=== PATIENT | female | born 1995 | race Caucasian/White ===

== ENCOUNTER 2016-11-17 11:05 | Inpatient (IN) | payer OTHER, BC ==
[2016-11-17] MEDS ORDERED: Misoprostol 25 MCG (1/4 of 100 MCG) Tab ONE (12:19)
[2016-11-17] MEDS ORDERED: Acetaminophen 325 MG Tab PO PRN (12:26)
[2016-11-17] MEDS ORDERED: Sodium Chloride 0.9% 10 ML Syringe FLUSH PRN (12:26)
[2016-11-17] MEDS ORDERED: Nalbuphine 20 MG/1 ML Amp IVPUSH PRN (12:26)
[2016-11-17] MEDS ORDERED: Ondansetron 4 MG/2 ML SDV IVPUSH PRN (12:26)
--- NOTE | 2016-11-17 12:26 | PCM.LDHP ---
L&D History of Present Illness - General Date of Service: 11/17/16 Admit Problem/Dx: Admission Diagnosis/Problem Admission Diagnosis/Problem Source of Information: Patient History Limitations: Reports: No Limitations - History of Present Illness Introduction:: Patient is a 21-year-old at 39-1/7 weeks gestation who presents to labor and delivery today for serial blood pressures and laboratory evaluation. Seen in clinic earlier today and noted to have 2 mild range blood pressures. Has overall been feeling well. Only intermittent headache since last seen. No visual changes or right upper quadrant pain. Baby is moving well. No significant signs of labor. up to this point is otherwise been uncomplicated. - Related Data Allergies/Adverse Reactions: Allergies Allergy/AdvReac Type Severity Reaction Status Date / Time No Known Allergies Allergy Verified 11/17/16 12:13 Home Medications: Home Meds PNV95/Ferrous Fumarate/FA [ Tablet] 1 each PO DAILY 11/17/16 [History] Past Medical History - Past Health History Medical/Surgical History: Denies Medical/Surgical History [employer] History: Reports: : 1 Para: 0 LMP (Approximate): Social & Family History - Tobacco Use Smoking Status *Q: Never Smoker - Alcohol Use Alcohol Use History: No - Recreational Drug Use Recreational Drug Use: No H&P Review of Systems - Review of Systems: Review Of Systems: See Below General: Reports: No Symptoms Pulmonary: Reports: No Symptoms Cardiovascular: Reports: No Symptoms Gastrointestinal: Reports: No Symptoms Genitourinary: Reports: No Symptoms Musculoskeletal: Reports: No Symptoms L&D Exam - Exam Exam: See Below - Vital Signs Weight: 102.965 kg - OB Specific Contraction Intensity: Irritability Movement: Active Heart Tones: Present Heart Tones per Min: 145 Heart Rate (FHR) Variability: Moderate (6-25 bmp) Presentation: Vertex - Mcclure Score Mcclure Score Cervix Position: Midposition Mcclure Score Consistency: Medium Mcclure Score Effacement: 31-50% Mcclure Score Dilation: 1-2 cm Mcclure Score 's Station: -3 Mcclure Score Total: 4 - Exam General: Alert, Oriented, Cooperative Lungs: Clear to Auscultation, Normal Respiratory Effort Cardiovascular: Regular Rate, Regular Rhythm Abdomen: Soft Genitourinary: Normal external exam Extremities: Normal Inspection Skin: Warm, Dry, Intact - Patient Data Lab Results Last 24 hrs: Laboratory Results - last 24 hr 11/17/16 Range/Units 11:45 WBC 11.00 H (3.98-10.04) K/mm3 RBC 4.40 (3.98-5.22) M/mm3 Hgb 12.9 (11.2-15.7) gm/L Hct 37.5 (34.1-44.9) % MCV 85.2 (79.4-94.8) fl MCH 29.3 (25.6-32.2) pg MCHC 34.4 (32.2-35.5) g/dl RDW Std Deviation 40.8 (36.4-46.3) fL Plt Count 155 L (182-369) K/mm3 MPV 10.0 (9.4-12.3) fl Result Diagrams: 11/17/16 11:45 - Problem List (1) 39 weeks gestation of SNOMED Code(s): 42215411 ICD Code: Z3A.39 - 39 WEEKS GESTATION OF Status: Acute Current Visit: Yes (2) Gestational hypertension SNOMED Code(s): 52616866 ICD Code: O13.9 - GESTATIONAL HTN W/O SIGNIFICANT PROTEINURIA, UNSP TRIMESTER Status: Acute Current Visit: Yes Qualifiers: Trimester: third trimester Qualified Code(s): O13.3 - Gestational [ -induced] hypertension without significant proteinuria, third trimester Problem List Initiated/Reviewed/Updated: Yes Orders Last 24hrs: Active Orders 24 hr Category Date Time Status ALANINE AMINOTRANSFERASE,ALT [CHEM] Routine Lab 11/17/16 11:45 Received ASPARTATE AMNIOTRANSFERASE,AST [CHEM] Routine Lab 11/17/16 11:45 Received UA W/O MICROSCOPIC [URIN] Routine Lab 11/17/16 11:27 Uncollected Assessment/Plan Comment:: 21-year-old at 39 and 1/7 weeks who presented to labor and delivery today for serial blood pressures and labs. These have shown consistent mild elevation in blood pressures. Laboratory testing normal. We'll plan to keep patient for induction for gestational hypertension. We will start induction process with Cytotec for cervical ripening. Will move on to Colón bulb placement and Pitocin when able. CBC and type and screen to be drawn. GBS negative, no need for antibiotics. Pain management per patient preference. Anticipate .
[2016-11-17] MEDS ORDERED: Oxytocin/Lactated Ringers 10 UNIT/1,000 ML BAG IV SCH ×2 (12:30→21:30)
[2016-11-17] MEDS: Misoprostol 25 MCG (1/4 of 100 MCG) Tab VAG PRN ×3 (12:42→20:59)
--- NOTE | 2016-11-17 16:41 | PCM.PREANE ---
Preanesthetic Assessment - Procedure Proposed Procedure: Labor Epidural - Anesthesia/Transfusion/Family Hx Anesthesia History: No Prior Anesthesia Family History of Anesthesia Reaction: No Transfusion History: No Prior Transfusion(s) - Review of Systems General: No Symptoms Pulmonary: No Symptoms Cardiovascular: Other (gestational hypertension ) Gastrointestinal: Other (GERD) Neurological: No Symptoms Other: Reports: None - Physical Assessment NPO Status Date: 11/17/16 NPO Status Time: 02:30 O2 Sat by Pulse Oximetry: 97 Respiratory Rate: 18 Vital Signs: Last Vital Signs Temp 36.9 C 11/17/16 12:26 Pulse 102 H 11/17/16 12:26 Resp 18 11/17/16 12:26 BP 143/100 H 11/17/16 12:26 Pulse Ox 97 11/17/16 12:26 Height: 1.7 m Weight: 102.965 kg ASA Class: 2 Mental Status: Alert & Oriented x3 Airway Class: Mallampati = 2 Dentition: Reports: Normal Dentition Thyro-Mental Finger Breadths: 3 Mouth Opening Finger Breadths: 3 ROM/Head Extension: Full Lungs: Clear to auscultation, Normal respiratory effort Cardiovascular: Regular Rate, Regular Rhythm - Lab Values: Laboratory Last Values WBC 11.00 K/mm3 (3.98-10.04) H 11/17/16 11:45 RBC 4.40 M/mm3 (3.98-5.22) 11/17/16 11:45 Hgb 12.9 gm/L (11.2-15.7) 11/17/16 11:45 Hct 37.5 % (34.1-44.9) 11/17/16 11:45 MCV 85.2 fl (79.4-94.8) 11/17/16 11:45 MCH 29.3 pg (25.6-32.2) 11/17/16 11:45 MCHC 34.4 g/dl (32.2-35.5) 11/17/16 11:45 RDW Std Deviation 40.8 fL (36.4-46.3) 11/17/16 11:45 Plt Count 155 K/mm3 (182-369) L 11/17/16 11:45 MPV 10.0 fl (9.4-12.3) 11/17/16 11:45 AST 13 U/L (15-37) L 11/17/16 11:45 ALT 16 U/L (14-59) 11/17/16 11:45 Urine Color Light yellow (Yellow) 11/17/16 12:20 Urine Appearance Clear (Clear) 11/17/16 12:20 Urine pH 7.0 (5.0-8.0) 11/17/16 12:20 Ur Specific [place] 1.015 (1.005-1.030) 11/17/16 12:20 Urine Protein Negative (Negative) 11/17/16 12:20 Urine Glucose (UA) Negative (Negative) 11/17/16 12:20 Urine Ketones Negative (Negative) 11/17/16 12:20 Urine Occult Blood Trace-lysed (Negative) H 11/17/16 12:20 Urine Nitrite Negative (Negative) 11/17/16 12:20 Urine Bilirubin Negative (Negative) 11/17/16 12:20 Urine Urobilinogen 0.2 (0.2-1.0) 11/17/16 12:20 Ur Leukocyte Esterase Negative (Negative) 11/17/16 12:20 - Allergies Allergies/Adverse Reactions: Allergies Allergy/AdvReac Type Severity Reaction Status Date / Time No Known Allergies Allergy Verified 11/17/16 12:13 - Blood Blood Available: No Product(s) Available: None - Anesthesia Plan Pre-Op Medication Ordered: None - Acknowledgements Anesthesia Type Planned: Epidural Pt an Appropriate Candidate for the Planned Anesthesia: Yes Alternatives and Risks of Anesthesia Discussed w Pt/Guardian: Yes Pt/Guardian Understands and Agrees with Anesthesia Plan: Yes PreAnesthesia Questionnaire Gastrointestinal History: Reports: Other (See Below) Other Gastrointestinal History: Heartburn with [employer] HELPER History: Reports: - Past Surgical History GI Surgical History: Reports: None - SUBSTANCE USE Smoking Status *Q: Never Smoker Second Hand Smoke Exposure: No Recreational Drug Use History: No - HOME MEDS Home Medications: Home Meds PNV95/Ferrous Fumarate/FA [ Tablet] 1 each PO DAILY 11/17/16 [History] - CURRENT (IN HOUSE) MEDS Current Meds: Current Medications Acetaminophen (Tylenol) 650 mg PO Q4H PRN PRN Reason: Pain (Mild 1-3) and fever Oxytocin/Lactated Ringer's (Pitocin In Lr 10 Units/1,000 Ml) 10 unit in 1,000 mls @ 500 mls/hr IV TITRATE KARMA PRN Reason: Protocol Misoprostol (Cytotec) 25 mcg VAG Q4H PRN PRN Reason: cervical ripening Stop: 11/17/16 20:27 Last Admin: 11/17/16 12:42 Dose: 25 mcg Nalbuphine HCl (Nubain) 10 mg IVPUSH Q2H PRN PRN Reason: Pain (moderate 4-6) Ondansetron HCl (Zofran) 4 mg IVPUSH Q4H PRN PRN Reason: Nausea/Vomiting Sodium Chloride (Saline Flush) 10 ml FLUSH ASDIRECTED PRN PRN Reason: Keep Vein Open Discontinued Medications Misoprostol (Cytotec) Confirm Administered Dose 25 mcg .ROUTE .STK-MED ONE Stop: 11/17/16 12:20 Last Admin: 11/17/16 12:41 Dose: Not Given
--- NOTE | 2016-11-17 20:10 | PCM.PNLD ---
Labor Progress Note - VS & Meds Vital Signs: Last Vital Signs Temp 36.9 C 11/17/16 12:26 Pulse 102 H 11/17/16 12:26 Resp 18 11/17/16 16:41 BP 143/100 H 11/17/16 12:26 Pulse Ox 97 11/17/16 16:41 Active Medications: Current Medications Acetaminophen (Tylenol) 650 mg PO Q4H PRN PRN Reason: Pain (Mild 1-3) and fever Oxytocin/Lactated Ringer's (Pitocin In Lr 10 Units/1,000 Ml) 10 unit in 1,000 mls @ 500 mls/hr IV TITRATE KARMA PRN Reason: Protocol Misoprostol (Cytotec) 25 mcg VAG Q4H PRN PRN Reason: cervical ripening Stop: 11/17/16 20:27 Last Admin: 11/17/16 16:53 Dose: 25 mcg Nalbuphine HCl (Nubain) 10 mg IVPUSH Q2H PRN PRN Reason: Pain (moderate 4-6) Ondansetron HCl (Zofran) 4 mg IVPUSH Q4H PRN PRN Reason: Nausea/Vomiting Sodium Chloride (Saline Flush) 10 ml FLUSH ASDIRECTED PRN PRN Reason: Keep Vein Open Discontinued Medications Misoprostol (Cytotec) Confirm Administered Dose 25 mcg .ROUTE .STK-MED ONE Stop: 11/17/16 12:20 Last Admin: 11/17/16 12:41 Dose: Not Given - Uterine Contractions Uterine Monitoring Mode: External [place] Contraction Intensity: Mild to Moderate - Monitoring Monitor Mode: External Ultrasound Heart Rate (FHR) Baseline: 145 Heart Rate (FHR) Variability: Moderate (6-25 bmp) Accelerations: Present, 15x15 Decelerations: None Strip Review: Category I - Vaginal Exam Dilation (cm): 1-2 Effacement (Percent): 50 Station: -3 Cervical Position: Posterior - Labor Progress (Free Text) Labor Progress: Patient doing well. Second cytotec dose placed by nursing staff. Continue present management.
--- NOTE | 2016-11-17 21:14 | PCM.PNLD ---
Labor Progress Note - VS & Meds Vital Signs: Last Vital Signs Temp 36.9 C 11/17/16 12:26 Pulse 102 H 11/17/16 12:26 Resp 18 11/17/16 16:41 BP 143/100 H 11/17/16 12:26 Pulse Ox 97 11/17/16 16:41 Active Medications: Current Medications Acetaminophen (Tylenol) 650 mg PO Q4H PRN PRN Reason: Pain (Mild 1-3) and fever Oxytocin/Lactated Ringer's (Pitocin In Lr 10 Units/1,000 Ml) 10 unit in 1,000 mls @ 500 mls/hr IV TITRATE KARMA PRN Reason: Protocol Nalbuphine HCl (Nubain) 10 mg IVPUSH Q2H PRN PRN Reason: Pain (moderate 4-6) Ondansetron HCl (Zofran) 4 mg IVPUSH Q4H PRN PRN Reason: Nausea/Vomiting Sodium Chloride (Saline Flush) 10 ml FLUSH ASDIRECTED PRN PRN Reason: Keep Vein Open Discontinued Medications Misoprostol (Cytotec) Confirm Administered Dose 25 mcg .ROUTE .STK-MED ONE Stop: 11/17/16 12:20 Last Admin: 11/17/16 12:41 Dose: Not Given Misoprostol (Cytotec) 25 mcg VAG Q4H PRN PRN Reason: cervical ripening Stop: 11/17/16 20:27 Last Admin: 11/17/16 20:59 Dose: 25 mcg - Uterine Contractions Uterine Monitoring Mode: External [place] Contraction Intensity: Mild to Moderate - Monitoring Monitor Mode: External Ultrasound Heart Rate (FHR) Baseline: 145 Heart Rate (FHR) Variability: Moderate (6-25 bmp) Accelerations: Present, 15x15 Decelerations: None Strip Review: Category I - Vaginal Exam Dilation (cm): 2 Effacement (Percent): 75 Station: -2 Cervical Position: Posterior - Labor Progress (Free Text) Labor Progress: Doing well. 3rd Cytotec placed along with perry bulb. 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
[2016-11-17] MEDS ORDERED: Zolpidem 5 MG Tab PO PRN (21:28)
[2016-11-18] MEDS: Lactated Ringers 1,000 ML IV SCH ×2 (04:40→09:56)
--- NOTE | 2016-11-18 07:33 | PCM.PNLD ---
Labor Progress Note - VS & Meds Vital Signs: Last Vital Signs Temp 36.9 C 11/17/16 12:26 Pulse 102 H 11/17/16 12:26 Resp 18 11/17/16 16:41 BP 143/100 H 11/17/16 12:26 Pulse Ox 97 11/17/16 16:41 Active Medications: Current Medications Acetaminophen (Tylenol) 650 mg PO Q4H PRN PRN Reason: Pain (Mild 1-3) and fever Oxytocin/Lactated Ringer's (Pitocin In Lr 10 Units/1,000 Ml) 10 unit in 1,000 mls @ 500 mls/hr IV TITRATE KARMA PRN Reason: Protocol Oxytocin/Lactated Ringer's (Pitocin In Lr 10 Units/1,000 Ml) 10 unit in 1,000 mls @ 12 mls/hr IV TITRATE KARMA; 2 MUNITS/MIN PRN Reason: Protocol Last Titration: 11/18/16 06:35 Dose: 7 munits/min, 42 mls/hr Lactated Ringer's (Ringers, Lactated) 1,000 mls @ 125 mls/hr IV ASDIRECTED KARMA Last Admin: 11/18/16 04:40 Dose: 125 mls/hr Nalbuphine HCl (Nubain) 10 mg IVPUSH Q2H PRN PRN Reason: Pain (moderate 4-6) Ondansetron HCl (Zofran) 4 mg IVPUSH Q4H PRN PRN Reason: Nausea/Vomiting Sodium Chloride (Saline Flush) 10 ml FLUSH ASDIRECTED PRN PRN Reason: Keep Vein Open Zolpidem Tartrate (Ambien) 5 mg PO BEDTIME PRN PRN Reason: Sleep Last Admin: 11/17/16 21:36 Dose: 5 mg Discontinued Medications Misoprostol (Cytotec) Confirm Administered Dose 25 mcg .ROUTE .STK-MED ONE Stop: 11/17/16 12:20 Last Admin: 11/17/16 12:41 Dose: Not Given Misoprostol (Cytotec) 25 mcg VAG Q4H PRN PRN Reason: cervical ripening Stop: 11/17/16 20:27 Last Admin: 11/17/16 20:59 Dose: 25 mcg - Uterine Contractions Uterine Monitoring Mode: External [place] Contraction Intensity: Mild to Moderate - Monitoring Monitor Mode: External Ultrasound Heart Rate (FHR) Baseline: 145 Heart Rate (FHR) Variability: Moderate (6-25 bmp) Accelerations: Present, 15x15 Decelerations: None Strip Review: Category I - Vaginal Exam Dilation (cm): 3-4 Effacement (Percent): 75 Station: -2 Cervical Position: Midposition - Labor Progress (Free Text) Labor Progress: Doing well. Colón bulb came out around midnight last night. Pitocin started around 5 am. Currently at 7. AROM performed with release of clear fluid. BP' s remain normal to mild range
[2016-11-18] MEDS ORDERED: fentaNYL 100 MCG/2 ML SDV ONE (08:51)
[2016-11-18] MEDS ORDERED: diphenhydrAMINE 50 MG/ML SDV IVPUSH PRN ×2 (09:02→11:39)
[2016-11-18] MEDS ORDERED: fentaNYL 100 MCG/2 ML SDV EPIDUR PRN (09:02)
[2016-11-18] MEDS ORDERED: ePHEDrine 50 MG/ML SDV IVPUSH PRN ×2 (09:02→11:39)
[2016-11-18] MEDS ORDERED: Bupivacaine/fentaNYL/NS 100 ML Bag EPIDUR SCH (09:15)
[2016-11-18] MEDS ORDERED: ceFAZolin 2 GM in Premix Bag 1 BAG IV ONE (09:57)
[2016-11-18] MEDS ORDERED: Metoclopramide 10 MG/2 ML SDV ONE (09:57)
[2016-11-18] MEDS ORDERED: Citric Acid/Sodium Citrate Solution 30 ML Cup ONE (09:57)
[2016-11-18] MEDS ORDERED: Metoclopramide 10 MG/2 ML SDV IVPUSH ONE (09:57)
[2016-11-18] MEDS ORDERED: Citric Acid/Sodium Citrate Solution 30 ML Cup PO ONE (09:57)
--- NOTE | 2016-11-18 09:57 | PCM.SN ---
- Free Text/Narrative Note: 0945 Called by nursing after completion of patient's epidural. FHR not tracing during epidural and immediately after completion noted to be in the 60s-70s which was confirmed on FSE application. Total time in 60-70's about 3 minutes. Once I presented FHR in low 100's and eventual recovering into the 120's. After a brief period of time FHR then began to demonstrate marked variability. SVE showed patient to still be 3-4 cm with some molding noted. Reviewed options and discussed moving forward with primary . She agrees. See operative note. Linnette Del Real MD
[2016-11-18] MEDS ORDERED: ceFAZolin 1 GM Vial ONE (10:28)
[2016-11-18] MEDS ORDERED: Oxytocin 10 Units/1 ML SDV ONE (10:40)
[2016-11-18] MEDS ORDERED: Lidocaine 2% with EPINEPHrine 1:200,000 20 ML SDV ONE (10:42)
[2016-11-18] MEDS ORDERED: Morphine PF 10 MG/10 ML SDV ONE (10:43)
[2016-11-18] MEDS ORDERED: Ketorolac 30 MG/ML SDV IVPUSH PRN (11:10)
--- NOTE | 2016-11-18 11:12 | PCM.OPNOTE ---
- General Post-Op/Procedure Note Date of Surgery/Procedure: 11/18/16 Operative Procedure(s): Primary low transverse Findings: * Baby boy in a vertex presentation. Weight of 8 lbs 9 oz. APGARS of 9 & 9 * Normal appearance of the uterus, fallopian tubes, and ovaries Pre Op Diagnosis: Non reassuring status - deceleration to the 60's-70's with then marked variability after recovery Post-Op Diagnosis: Same Anesthesia Technique: Epidural Primary Surgeon: Linnette Del Real Secondary Surgeon: Natacha Patton Anesthesia Provider: Wyatt Armstrong Pathology: Cord blood collected. Placenta discarded. Fluid Replacement, Intraop: 1,400 Output, Urine Amount: 100 EBL in mLs: 600 Complications: None Condition: Good Free Text/Narrative:: The risks, benefits, indications, potential complications, and alternatives were explained to the patient and informed consent obtained. After induction of anesthesia, the patient was placed in a supine position and then draped and prepped in the usual sterile manner. A Pfannenstiel incision was made and carried down through the subcutaneous tissue to the fascia. Fascial incision was made and extended transversely. The fascia was from the underlying rectus tissue superiorly and inferiorly. The peritoneum was identified and entered. Peritoneal incision was extended longitudinally. The utero-vesical peritoneal reflection was incised transversely and the bladder flap was bluntly freed from the lower uterine segment. A low transverse uterine incision was made sharply with a scalpel and extended bluntly in a cephalocaudad direction. A baby boy was delivered from a vertex presentation with APGARS as above. After the umbilical cord was clamped and cut cord blood was obtained for evaluation. The placenta was removed intact and appeared normal. The uterus was exteriorized and cleared of clots. The uterine outline, tubes and ovaries appeared normal. The uterine incision was closed with running locked sutures of 0 Vicryl. Hemostasis was obtained with a second imbricating layer of 0 vicryl. The uterus was then placed back into the abdomen. The infracolic gutters were cleared of blood clots. The fascia was then reapproximated with running sutures of 0 Vicryl. The sucutaneous tissue was irrigated with sterile warm normal saline, hemostasis obtained with cautery. This layer was closed with a running 0 vicryl suture. The skin was reapproximated with running Subcuticular 4-0 monocryl sutures. Instrument, sponge, and needle counts were correct prior the abdominal closure and at the conclusion of the case.
--- NOTE | 2016-11-18 11:13 | PCM.POSTAN ---
POST ANESTHESIA ASSESSMENT - MENTAL STATUS Mental Status: alert, oriented - VITAL SIGNS Pulse Rate: 115 SaO2: 98 Resp Rate: 18 Blood Pressure: 90/38 Temperature: 36.9 C - RESPIRATORY Respiratory Status: respiratory rate WNL, airway patent, O2 saturation stable, supplemental oxygen - CARDIOVASCULAR CV Status: pulse rate WNL, blood pressure stable - GASTROINTESTINAL GI Status: no symptoms - PAIN Pain Score: 0 - POST OP HYDRATION Hydration Status: adequate & stable - OBSERVATIONS Free Text/Narrative:: no anesthesia complications noted
[2016-11-18] MEDS: Meperidine PF 50 MG/ML Syringe IVPUSH ONE ×2 (11:14→12:00)
[2016-11-18] MEDS ORDERED: Ibuprofen 600 MG Tab PO PRN (11:15)
[2016-11-18] MEDS ORDERED: Ondansetron 4 MG/2 ML SDV IV PRN (11:39)
[2016-11-18] MEDS ORDERED: Dextrose 5%-Lactated Ringers 1,000 ML IV SCH (11:39)
[2016-11-18] MEDS ORDERED: Lanolin 100% Cream 7 GM Tube TOP PRN (11:39)
[2016-11-18] MEDS ORDERED: Naloxone 0.4 MG/ML SDV IVPUSH PRN (11:39)
[2016-11-18] MEDS: Ketorolac 30 MG/ML SDV IVPUSH SCH (18:09)
[2016-11-18] MEDS: Acetaminophen/oxyCODONE 325-5 MG Tab PO PRN (20:43)
[2016-11-18] MEDS: Docusate Sodium 100 MG Cap PO PRN (20:43)
[2016-11-19] MEDS: Ketorolac 30 MG/ML SDV IVPUSH SCH ×2 (00:17→06:03)
--- NOTE | 2016-11-19 07:59 | PCM.PNPP ---
- General Info Date of Service: 11/19/16 Functional Status: Reports: pain controlled, tolerating diet, ambulating, urinating - Review of Systems General: Reports: No Symptoms Pulmonary: Reports: no symptoms Cardiovascular: Reports: No Symptoms Gastrointestinal: Reports: Abdominal pain (managed with medications) Genitourinary: Reports: no symptoms Musculoskeletal: Reports: no symptoms - Patient Data Vital Signs - most recent: Last Vital Signs Temp 37.1 C 11/19/16 04:45 Pulse 84 11/19/16 04:45 Resp 16 11/19/16 06:59 BP 103/53 L 11/19/16 00:17 Pulse Ox 96 11/19/16 06:59 Weight - most recent: 102.965 kg I&O - last 24 hours: Intake & Output 11/18/16 11/19/16 11/19/16 22:59 06:59 14:59 Intake Total 1000 Output Total 1000 300 Balance 0 -300 Lab Results - last 24 hrs: Laboratory Results - last 24 hr 11/19/16 Range/Units 05:10 WBC 13.89 H (3.98-10.04) K/mm3 RBC 3.53 L (3.98-5.22) M/mm3 Hgb 10.4 L (11.2-15.7) gm/L Hct 30.9 L (34.1-44.9) % MCV 87.5 (79.4-94.8) fl MCH 29.5 (25.6-32.2) pg MCHC 33.7 (32.2-35.5) g/dl RDW Std Deviation 41.0 (36.4-46.3) fL Plt Count 153 L (182-369) K/mm3 MPV 10.1 (9.4-12.3) fl Med Orders - Current: Current Medications Diphenhydramine HCl (Benadryl) 25 mg IVPUSH Q6H PRN PRN Reason: Itching or Nausea Docusate Sodium (Colace) 100 mg PO Q12H PRN PRN Reason: Constipation Last Admin: 11/18/16 20:43 Dose: 100 mg Emollient Ointment (Lansinoh Hpa) 0 gm TOP ASDIRECTED PRN PRN Reason: Sore Nipples Ephedrine Sulfate (Ephedrine Sulfate) 5 mg IVPUSH SEECOMMENT PRN PRN Reason: Other Ibuprofen (Motrin) 600 mg PO Q6H PRN PRN Reason: mild pain or fever Naloxone HCl (Narcan) 0.1 mg IVPUSH SEECOMMENT PRN PRN Reason: Respiratory Depression Ondansetron HCl (Zofran) 4 mg IV Q8H PRN PRN Reason: Nausea/Vomiting Oxycodone/Acetaminophen (Percocet 325-5 Mg) 2 tab PO Q4H PRN PRN Reason: Pain (moderate 4-6) Last Admin: 11/18/16 20:43 Dose: 2 tab Discontinued Medications Acetaminophen (Tylenol) 650 mg PO Q4H PRN PRN Reason: Pain (Mild 1-3) and fever Cefazolin Sodium (Ancef) Confirm Administered Dose 2 gm .ROUTE .STK-MED ONE Stop: 11/18/16 10:29 Citric Acid/Sodium Citrate (Bicitra Solution) 30 ml PO ONETIME ONE Stop: 11/18/16 09:58 Last Admin: 11/18/16 10:12 Dose: 30 ml Citric Acid/Sodium Citrate (Bicitra Solution) Confirm Administered Dose 30 ml .ROUTE .STK-MED ONE Stop: 11/18/16 09:58 Last Admin: 11/18/16 21:49 Dose: Not Given Diphenhydramine HCl (Benadryl) 25 mg IVPUSH Q6H PRN PRN Reason: Itching Ephedrine Sulfate (Ephedrine Sulfate) 5 mg IVPUSH ASDIRECTED PRN PRN Reason: HYPOTENTSION Fentanyl (Sublimaze) Confirm Administered Dose 100 mcg .ROUTE .STK-MED ONE Stop: 11/18/16 08:52 Last Admin: 11/18/16 09:23 Dose: 100 mcg Fentanyl (Sublimaze) 100 mcg EPIDUR Q3H PRN PRN Reason: PAIN Fentanyl/Bupivacaine HCl (Fentanyl/Bupivacaine/Ns 2 Mcg-0.125% 100 Ml) 100 ml EPIDUR ASDIRECTED [facility] Last Admin: 11/18/16 09:55 Dose: 100 ml Oxytocin/Lactated Ringer's (Pitocin In Lr 10 Units/1,000 Ml) 10 unit in 1,000 mls @ 500 mls/hr IV TITRATE K[facility]MA PRN Reason: Protocol Oxytocin/Lactated Ringer's (Pitocin In Lr 10 Units/1,000 Ml) 10 unit in 1,000 mls @ 12 mls/hr IV TITRATE K[facility]MA; 2 MUNITS/MIN PRN Reason: Protocol Last Titration: 11/18/16 08:00 Dose: 6 munits/min, 36 mls/hr Lactated Ringer's (Ringers, Lactated) 1,000 mls @ 125 mls/hr IV ASDIRECTED [facility] Last Admin: 11/18/16 09:56 Dose: 125 mls/hr Cefazolin Sodium/Dextrose 2 gm (/ Premix) 50 mls @ 100 mls/hr IV ONETIME ONE Stop: 11/18/16 10:26 Last Admin: 11/18/16 21:49 Dose: Not Given Dextrose/Lactated Ringer's (Dextrose 5%-Lactated Ringers) 1,000 mls @ 125 mls/ hr IV ASDIRECTED [facility] Stop: 11/18/16 19:38 Last Admin: 11/18/16 14:13 Dose: 125 mls/hr Ibuprofen (Motrin) 600 mg PO Q6H PRN PRN Reason: mild pain or fever Ketorolac Tromethamine (Toradol) 30 mg IVPUSH ONETIME PRN PRN Reason: Pain Stop: 11/18/16 13:00 Last Admin: 11/18/16 12:12 Dose: 30 mg Ketorolac Tromethamine (Toradol) 30 mg IVPUSH Q6H [facility] Stop: 11/19/16 06:01 Last Admin: 11/19/16 06:03 Dose: 30 mg Lidocaine/Epinephrine (Xylocaine-Mpf 2%-Epi 1:200,000) Confirm Administered Dose 20 ml .ROUTE .STK-MED ONE Stop: 11/18/16 10:43 Meperidine HCl (Demerol) 12.5 mg IVPUSH ONETIME ONE Stop: 11/18/16 11:21 Last Admin: 11/18/16 12:00 Dose: 12.5 mg Metoclopramide HCl (Reglan) 10 mg IVPUSH ONETIME ONE Stop: 11/18/16 09:58 Last Admin: 11/18/16 10:13 Dose: 10 mg Metoclopramide HCl (Reglan) Confirm Administered Dose 10 mg .ROUTE .STK-MED ONE Stop: 11/18/16 09:58 Last Admin: 11/18/16 21:49 Dose: Not Given Misoprostol (Cytotec) Confirm Administered Dose 25 mcg .ROUTE .STK-MED ONE Stop: 11/17/16 12:20 Last Admin: 11/17/16 12:41 Dose: Not Given Misoprostol (Cytotec) 25 mcg VAG Q4H PRN PRN Reason: cervical ripening Stop: 11/17/16 20:27 Last Admin: 11/17/16 20:59 Dose: 25 mcg Morphine Sulfate (Duramorph Pf) Confirm Administered Dose 10 mg .ROUTE .STK-MED ONE Stop: 11/18/16 10:44 Nalbuphine HCl (Nubain) 10 mg IVPUSH Q2H PRN PRN Reason: Pain (moderate 4-6) Ondansetron HCl (Zofran) 4 mg IVPUSH Q4H PRN PRN Reason: Nausea/Vomiting Last Admin: 11/18/16 08:00 Dose: 4 mg Oxytocin (Pitocin) Confirm Administered Dose 10 unit .ROUTE .STK-MED ONE Stop: 11/18/16 10:41 Sodium Chloride (Saline Flush) 10 ml FLUSH ASDIRECTED PRN PRN Reason: Keep Vein Open Zolpidem Tartrate (Ambien) 5 mg PO BEDTIME PRN PRN Reason: Sleep Last Admin: 11/17/16 21:36 Dose: 5 mg - Interaction Disposition, : in Room with Family Interaction: Holding Infant Feeding: Attempted ; Nursed Fair/Poor Support Person: Mother, Significant Other - Recovery Exam Fundal Tone: Firm Fundal Level: 1 Fingerbreadths Below Umbilicus Fundal Placement: Midline Lochia Amount: Small Lochia Color: Rubra/Red Perineum Description: Intact, Minimal Bruising/Swelling Episiotomy/Laceration: None Bladder Status: Voiding Urinary Elimination: Voided - Exam General: alert, oriented, cooperative Lungs: Clear to auscultation, Normal respiratory effort Cardiovascular: Regular Rate, Regular Rhythm Abdomen: soft, tenderness (appropriate post op) Extremities: edema Skin: warm, dry, intact Wound/Incisions: healing well, dressing dry and intact - Problem List & Annotations (1) 39 weeks gestation of SNOMED Code(s): 45732987 Code(s): Z3A.39 - 39 WEEKS GESTATION OF Status: Acute Current Visit: Yes (2) Gestational hypertension SNOMED Code(s): 19248492 Code(s): O13.9 - GESTATIONAL HTN W/O SIGNIFICANT PROTEINURIA, UNSP TRIMESTER Status: Acute Current Visit: Yes Qualifiers: Trimester: third trimester Qualified Code(s): O13.3 - Gestational [ -induced] hypertension without significant proteinuria, third trimester (3) Non-reassuring status SNOMED Code(s): 296175273 Code(s): PRV0619 - Status: Acute Current Visit: Yes (4) S/P primary low transverse SNOMED Code(s): 568055590, 136679598, 340024550, 302256013 Code(s): Z98.891 - HISTORY OF UTERINE SCAR FROM PREVIOUS SURGERY Status: Acute Current Visit: Yes - Problem List Review Problem List Initiated/Reviewed/Updated: Yes - My Orders Last 24 Hours: My Active Orders 11/18/16 09:57 Verify Patient Consent Obtain [RC] PER UNIT ROUTINE 11/18/16 10:23 Schedule Procedure [COMM] Stat 11/18/16 11:39 Activity as Tolerated [RC] .Routine Antiembolic Devices [RC] PER UNIT ROUTINE Communication Order [RC] PER UNIT ROUTINE Intake and Output [RC] Q4HR May Shower [RC] PER UNIT ROUTINE Notify Provider Intake and Out [RC] ASDIRECTED RT Incentive Spirometry [RC] Q2HWA Vital Signs [RC] Q1HR Acetaminophen/oxyCODONE [Percocet 325-5 MG] 2 tab PO Q4H PRN Docusate Sodium [Colace] 100 mg PO Q12H PRN Lanolin [Lansinoh HPA] See Dose Instructions TOP ASDIRECTED PRN Naloxone [Narcan] 0.1 mg IVPUSH SEECOMMENT PRN Ondansetron [Zofran] 4 mg IV Q8H PRN diphenhydrAMINE [Benadryl] 25 mg IVPUSH Q6H PRN ePHEDrine [ePHEDrine Sulfate] 5 mg IVPUSH SEECOMMENT PRN Assess Lochia [WOMSER] Per Unit Routine Assess Uterine Involution [WOMSER] Per Unit Routine Breast Pump [WOMSER] Per Unit Routine Heat Therapy [OM.PC] Per Unit Routine Ice Therapy [OM.PC] Per Unit Routine Sequential Compression Device [OM.PC] Per Unit Routine 11/18/16 Dinner Regular Diet [DIET] 11/19/16 11:14 Urinary Catheter Removal [RC] Per Unit Routine 11/19/16 12:00 Ibuprofen [Motrin] 600 mg PO Q6H PRN - Assessment Assessment:: 21-year-old G1 now P1001 POD#1 from [facility] at 39 and 1/7 weeks due to NRFS - Plan Plan:: S/p * Routine cares * Encourage breast feeding * Discharge home in 1-2 days
[2016-11-19] MEDS: Docusate Sodium 100 MG Cap PO PRN ×2 (08:41→21:19)
[2016-11-19] MEDS: Acetaminophen/oxyCODONE 325-5 MG Tab PO PRN ×3 (08:41→18:05)
[2016-11-19] MEDS: Ibuprofen 600 MG Tab PO PRN ×2 (15:08→21:19)
[2016-11-20] MEDS: Acetaminophen/oxyCODONE 325-5 MG Tab PO PRN ×3 (02:24→13:11)
[2016-11-20] MEDS: Ibuprofen 600 MG Tab PO PRN (04:59)
--- NOTE | 2016-11-20 06:54 | PCM.DCSUM1 ---
Discharge Summary - Discharge Data Discharge Date: 11/20/16 Discharge Disposition: Home, Self-Care 01 Condition: Good - Discharge Diagnosis/Problem(s) (1) 39 weeks gestation of SNOMED Code(s): 84076979 ICD Code: Z3A.39 - 39 WEEKS GESTATION OF Status: Acute Current Visit: Yes (2) Gestational hypertension SNOMED Code(s): 96801757 ICD Code: O13.9 - GESTATIONAL HTN W/O SIGNIFICANT PROTEINURIA, UNSP TRIMESTER Status: Acute Current Visit: Yes Qualifiers: Trimester: third trimester Qualified Code(s): O13.3 - Gestational [ -induced] hypertension without significant proteinuria, third trimester (3) Non-reassuring status SNOMED Code(s): 111837976 ICD Code: STA8635 - Status: Acute Current Visit: Yes (4) S/P primary low transverse SNOMED Code(s): 091275243, 801722783, 821852287, 426081647 ICD Code: Z98.891 - HISTORY OF UTERINE SCAR FROM PREVIOUS SURGERY Status: Acute Current Visit: Yes - Patient Summary/Data Operative Procedure(s) Performed: Primary low transverse Complications: None Consults: None Recommended Follow-up Testing/Procedures: Follow up in 1-2 weeks for BP check/incision check Hospital Course: 21 y/o at 39 1/7 wks presented to L&D for evaluation, serial BP's, laboratory testing after findings of elevated values in clinic. On L&D was found to have persistently mild range pressures and so kept for IOL for gestational HTN. This was done with cytotec and eventual AROM and pitocin augmentation. After completion of patient's epidural a bradycardia to the 60-70's was noted which did recover to the 120's, but with marked variability. Due to this finding recommendations were for primary . She agreed. Surgery was uncomplicated. See delivery note. she did well and was discharged home on PPD#2. - Patient Instructions Diet: Regular Diet as Tolerated Activity: No Lifting Over 10 Pounds Activity, Other: Pelvic Rest for 6 weeks Driving: Do Not Drive (while taking narcotics ) Showering/Bathing: May Shower, No Tub Bathing/Swimming Wound/Incision Care: Keep Operative Site/Wound Site Clean and Dry Notify Provider of: Fever, Increased Pain, Swelling and Redness, Drainage, Nausea and/or Vomiting - Discharge Plan Prescriptions/Med Rec: Acetaminophen/oxyCODONE [Percocet 325-5 MG] 2 tab PO Q4H PRN #25 tablet PRN Reason: Pain Home Medications: Home Meds PNV95/Ferrous Fumarate/FA [ Tablet] 1 each PO DAILY 11/17/16 [History] Acetaminophen/oxyCODONE [Percocet 325-5 MG] 2 tab PO Q4H PRN #25 tablet [Rx] Docusate Sodium [Colace] 100 mg PO Q12H PRN #0 cap 11/20/16 [Rx] Ibuprofen [IJD: Ibuprofen] 600 mg PO Q6H PRN #0 tablet 11/20/16 [Rx] Patient Handouts: Depression and Baby Blues, Delivery, Care After, Pelvic Rest, Breast Pumping Tips, [id number], Challenges and Solutions Referrals: Linnette Del Real MD [Physician] - (1-2 weeks for postop check) - Discharge Summary/Plan Comment DC Time >30 min.: No - Patient Data Vitals - Most Recent: Last Vital Signs Temp 37.1 C 11/20/16 02:28 Pulse 85 11/20/16 02:28 Resp 14 11/20/16 02:28 BP 121/72 11/20/16 02:28 Pulse Ox 97 11/20/16 02:28 Weight - Most Recent: 102.965 kg I&O - Last 24 hours: Intake & Output 11/19/16 11/19/16 11/20/16 14:59 22:59 06:59 Intake Total 240 0 Output Total 700 Balance -460 0 Med Orders - Current: Current Medications Diphenhydramine HCl (Benadryl) 25 mg IVPUSH Q6H PRN PRN Reason: Itching or Nausea Docusate Sodium (Colace) 100 mg PO Q12H PRN PRN Reason: Constipation Last Admin: 11/19/16 21:19 Dose: 100 mg Emollient Ointment (Lansinoh Hpa) 0 gm TOP ASDIRECTED PRN PRN Reason: Sore Nipples Ephedrine Sulfate (Ephedrine Sulfate) 5 mg IVPUSH SEECOMMENT PRN PRN Reason: Other Ibuprofen (Motrin) 600 mg PO Q6H PRN PRN Reason: mild pain or fever Last Admin: 11/20/16 04:59 Dose: 600 mg Naloxone HCl (Narcan) 0.1 mg IVPUSH SEECOMMENT PRN PRN Reason: Respiratory Depression Ondansetron HCl (Zofran) 4 mg IV Q8H PRN PRN Reason: Nausea/Vomiting Oxycodone/Acetaminophen (Percocet 325-5 Mg) 2 tab PO Q4H PRN PRN Reason: Pain (moderate 4-6) Last Admin: 11/20/16 02:24 Dose: 2 tab Discontinued Medications Acetaminophen (Tylenol) 650 mg PO Q4H PRN PRN Reason: Pain (Mild 1-3) and fever Cefazolin Sodium (Ancef) Confirm Administered Dose 2 gm .ROUTE .STK-MED ONE Stop: 11/18/16 10:29 Citric Acid/Sodium Citrate (Bicitra Solution) 30 ml PO ONETIME ONE Stop: 11/18/16 09:58 Last Admin: 11/18/16 10:12 Dose: 30 ml Citric Acid/Sodium Citrate (Bicitra Solution) Confirm Administered Dose 30 ml .ROUTE .STK-MED ONE Stop: 11/18/16 09:58 Last Admin: 11/18/16 21:49 Dose: Not Given Diphenhydramine HCl (Benadryl) 25 mg IVPUSH Q6H PRN PRN Reason: Itching Ephedrine Sulfate (Ephedrine Sulfate) 5 mg IVPUSH ASDIRECTED PRN PRN Reason: HYPOTENTSION Fentanyl (Sublimaze) Confirm Administered Dose 100 mcg .ROUTE .STK-MED ONE Stop: 11/18/16 08:52 Last Admin: 11/18/16 09:23 Dose: 100 mcg Fentanyl (Sublimaze) 100 mcg EPIDUR Q3H PRN PRN Reason: PAIN Fentanyl/Bupivacaine HCl (Fentanyl/Bupivacaine/Ns 2 Mcg-0.125% 100 Ml) 100 ml EPIDUR ASDIRECTED [facility] Last Admin: 11/18/16 09:55 Dose: 100 ml Oxytocin/Lactated Ringer's (Pitocin In Lr 10 Units/1,000 Ml) 10 unit in 1,000 mls @ 500 mls/hr IV TITRATE K[facility]MA PRN Reason: Protocol Oxytocin/Lactated Ringer's (Pitocin In Lr 10 Units/1,000 Ml) 10 unit in 1,000 mls @ 12 mls/hr IV TITRATE KARAM; 2 MUNITS/MIN PRN Reason: Protocol Last Titration: 11/18/16 08:00 Dose: 6 munits/min, 36 mls/hr Lactated Ringer's (Ringers, Lactated) 1,000 mls @ 125 mls/hr IV ASDIRECTED [facility] Last Admin: 11/18/16 09:56 Dose: 125 mls/hr Cefazolin Sodium/Dextrose 2 gm (/ Premix) 50 mls @ 100 mls/hr IV ONETIME ONE Stop: 11/18/16 10:26 Last Admin: 11/18/16 21:49 Dose: Not Given Dextrose/Lactated Ringer's (Dextrose 5%-Lactated Ringers) 1,000 mls @ 125 mls/ hr IV ASDIRECTED [facility] Stop: 11/18/16 19:38 Last Admin: 11/18/16 14:13 Dose: 125 mls/hr Ibuprofen (Motrin) 600 mg PO Q6H PRN PRN Reason: mild pain or fever Ketorolac Tromethamine (Toradol) 30 mg IVPUSH ONETIME PRN PRN Reason: Pain Stop: 11/18/16 13:00 Last Admin: 11/18/16 12:12 Dose: 30 mg Ketorolac Tromethamine (Toradol) 30 mg IVPUSH Q6H [facility] Stop: 11/19/16 06:01 Last Admin: 11/19/16 06:03 Dose: 30 mg Lidocaine/Epinephrine (Xylocaine-Mpf 2%-Epi 1:200,000) Confirm Administered Dose 20 ml .ROUTE .STK-MED ONE Stop: 11/18/16 10:43 Meperidine HCl (Demerol) 12.5 mg IVPUSH ONETIME ONE Stop: 11/18/16 11:21 Last Admin: 11/18/16 12:00 Dose: 12.5 mg Metoclopramide HCl (Reglan) 10 mg IVPUSH ONETIME ONE Stop: 11/18/16 09:58 Last Admin: 11/18/16 10:13 Dose: 10 mg Metoclopramide HCl (Reglan) Confirm Administered Dose 10 mg .ROUTE .STK-MED ONE Stop: 11/18/16 09:58 Last Admin: 11/18/16 21:49 Dose: Not Given Misoprostol (Cytotec) Confirm Administered Dose 25 mcg .ROUTE .STK-MED ONE Stop: 11/17/16 12:20 Last Admin: 11/17/16 12:41 Dose: Not Given Misoprostol (Cytotec) 25 mcg VAG Q4H PRN PRN Reason: cervical ripening Stop: 11/17/16 20:27 Last Admin: 11/17/16 20:59 Dose: 25 mcg Morphine Sulfate (Duramorph Pf) Confirm Administered Dose 10 mg .ROUTE .STK-MED ONE Stop: 11/18/16 10:44 Nalbuphine HCl (Nubain) 10 mg IVPUSH Q2H PRN PRN Reason: Pain (moderate 4-6) Ondansetron HCl (Zofran) 4 mg IVPUSH Q4H PRN PRN Reason: Nausea/Vomiting Last Admin: 11/18/16 08:00 Dose: 4 mg Oxytocin (Pitocin) Confirm Administered Dose 10 unit .ROUTE .STK-MED ONE Stop: 11/18/16 10:41 Sodium Chloride (Saline Flush) 10 ml FLUSH ASDIRECTED PRN PRN Reason: Keep Vein Open Zolpidem Tartrate (Ambien) 5 mg PO BEDTIME PRN PRN Reason: Sleep Last Admin: 11/17/16 21:36 Dose: 5 mg *Q Meaningful Use (DIS) - VTE *Q VTE Criteria *Q: - Stroke *Q Stroke Criteria *Q: - AMI *Q AMI Criteria *Q:
--- NOTE | 2016-11-20 06:54 | PCM.PNPP ---
- General Info Date of Service: 11/20/16 Functional Status: Reports: pain controlled, tolerating diet, ambulating, urinating - Review of Systems General: Reports: No Symptoms Pulmonary: Reports: no symptoms Cardiovascular: Reports: No Symptoms Gastrointestinal: Reports: Abdominal pain (managed with medications) Genitourinary: Reports: no symptoms Musculoskeletal: Reports: no symptoms - Patient Data Vital Signs - most recent: Last Vital Signs Temp 37.1 C 11/20/16 02:28 Pulse 85 11/20/16 02:28 Resp 14 11/20/16 02:28 BP 121/72 11/20/16 02:28 Pulse Ox 97 11/20/16 02:28 Weight - most recent: 102.965 kg I&O - last 24 hours: Intake & Output 11/19/16 11/19/16 11/20/16 14:59 22:59 06:59 Intake Total 240 0 Output Total 700 Balance -460 0 Med Orders - Current: Current Medications Diphenhydramine HCl (Benadryl) 25 mg IVPUSH Q6H PRN PRN Reason: Itching or Nausea Docusate Sodium (Colace) 100 mg PO Q12H PRN PRN Reason: Constipation Last Admin: 11/19/16 21:19 Dose: 100 mg Emollient Ointment (Lansinoh Hpa) 0 gm TOP ASDIRECTED PRN PRN Reason: Sore Nipples Ephedrine Sulfate (Ephedrine Sulfate) 5 mg IVPUSH SEECOMMENT PRN PRN Reason: Other Ibuprofen (Motrin) 600 mg PO Q6H PRN PRN Reason: mild pain or fever Last Admin: 11/20/16 04:59 Dose: 600 mg Naloxone HCl (Narcan) 0.1 mg IVPUSH SEECOMMENT PRN PRN Reason: Respiratory Depression Ondansetron HCl (Zofran) 4 mg IV Q8H PRN PRN Reason: Nausea/Vomiting Oxycodone/Acetaminophen (Percocet 325-5 Mg) 2 tab PO Q4H PRN PRN Reason: Pain (moderate 4-6) Last Admin: 11/20/16 02:24 Dose: 2 tab Discontinued Medications Acetaminophen (Tylenol) 650 mg PO Q4H PRN PRN Reason: Pain (Mild 1-3) and fever Cefazolin Sodium (Ancef) Confirm Administered Dose 2 gm .ROUTE .STK-MED ONE Stop: 11/18/16 10:29 Citric Acid/Sodium Citrate (Bicitra Solution) 30 ml PO ONETIME ONE Stop: 11/18/16 09:58 Last Admin: 11/18/16 10:12 Dose: 30 ml Citric Acid/Sodium Citrate (Bicitra Solution) Confirm Administered Dose 30 ml .ROUTE .STK-MED ONE Stop: 11/18/16 09:58 Last Admin: 11/18/16 21:49 Dose: Not Given Diphenhydramine HCl (Benadryl) 25 mg IVPUSH Q6H PRN PRN Reason: Itching Ephedrine Sulfate (Ephedrine Sulfate) 5 mg IVPUSH ASDIRECTED PRN PRN Reason: HYPOTENTSION Fentanyl (Sublimaze) Confirm Administered Dose 100 mcg .ROUTE .STK-MED ONE Stop: 11/18/16 08:52 Last Admin: 11/18/16 09:23 Dose: 100 mcg Fentanyl (Sublimaze) 100 mcg EPIDUR Q3H PRN PRN Reason: PAIN Fentanyl/Bupivacaine HCl (Fentanyl/Bupivacaine/Ns 2 Mcg-0.125% 100 Ml) 100 ml EPIDUR ASDIRECTED [facility] Last Admin: 11/18/16 09:55 Dose: 100 ml Oxytocin/Lactated Ringer's (Pitocin In Lr 10 Units/1,000 Ml) 10 unit in 1,000 mls @ 500 mls/hr IV TITRATE K[facility]MA PRN Reason: Protocol Oxytocin/Lactated Ringer's (Pitocin In Lr 10 Units/1,000 Ml) 10 unit in 1,000 mls @ 12 mls/hr IV TITRATE KARMA; 2 MUNITS/MIN PRN Reason: Protocol Last Titration: 11/18/16 08:00 Dose: 6 munits/min, 36 mls/hr Lactated Ringer's (Ringers, Lactated) 1,000 mls @ 125 mls/hr IV ASDIRECTED [facility] Last Admin: 11/18/16 09:56 Dose: 125 mls/hr Cefazolin Sodium/Dextrose 2 gm (/ Premix) 50 mls @ 100 mls/hr IV ONETIME ONE Stop: 11/18/16 10:26 Last Admin: 11/18/16 21:49 Dose: Not Given Dextrose/Lactated Ringer's (Dextrose 5%-Lactated Ringers) 1,000 mls @ 125 mls/ hr IV ASDIRECTED [facility] Stop: 11/18/16 19:38 Last Admin: 11/18/16 14:13 Dose: 125 mls/hr Ibuprofen (Motrin) 600 mg PO Q6H PRN PRN Reason: mild pain or fever Ketorolac Tromethamine (Toradol) 30 mg IVPUSH ONETIME PRN PRN Reason: Pain Stop: 11/18/16 13:00 Last Admin: 11/18/16 12:12 Dose: 30 mg Ketorolac Tromethamine (Toradol) 30 mg IVPUSH Q6H [facility] Stop: 11/19/16 06:01 Last Admin: 11/19/16 06:03 Dose: 30 mg Lidocaine/Epinephrine (Xylocaine-Mpf 2%-Epi 1:200,000) Confirm Administered Dose 20 ml .ROUTE .STK-MED ONE Stop: 11/18/16 10:43 Meperidine HCl (Demerol) 12.5 mg IVPUSH ONETIME ONE Stop: 11/18/16 11:21 Last Admin: 11/18/16 12:00 Dose: 12.5 mg Metoclopramide HCl (Reglan) 10 mg IVPUSH ONETIME ONE Stop: 11/18/16 09:58 Last Admin: 11/18/16 10:13 Dose: 10 mg Metoclopramide HCl (Reglan) Confirm Administered Dose 10 mg .ROUTE .STK-MED ONE Stop: 11/18/16 09:58 Last Admin: 11/18/16 21:49 Dose: Not Given Misoprostol (Cytotec) Confirm Administered Dose 25 mcg .ROUTE .STK-MED ONE Stop: 11/17/16 12:20 Last Admin: 11/17/16 12:41 Dose: Not Given Misoprostol (Cytotec) 25 mcg VAG Q4H PRN PRN Reason: cervical ripening Stop: 11/17/16 20:27 Last Admin: 11/17/16 20:59 Dose: 25 mcg Morphine Sulfate (Duramorph Pf) Confirm Administered Dose 10 mg .ROUTE .STK-MED ONE Stop: 11/18/16 10:44 Nalbuphine HCl (Nubain) 10 mg IVPUSH Q2H PRN PRN Reason: Pain (moderate 4-6) Ondansetron HCl (Zofran) 4 mg IVPUSH Q4H PRN PRN Reason: Nausea/Vomiting Last Admin: 11/18/16 08:00 Dose: 4 mg Oxytocin (Pitocin) Confirm Administered Dose 10 unit .ROUTE .K-MED ONE Stop: 11/18/16 10:41 Sodium Chloride (Saline Flush) 10 ml FLUSH ASDIRECTED PRN PRN Reason: Keep Vein Open Zolpidem Tartrate (Ambien) 5 mg PO BEDTIME PRN PRN Reason: Sleep Last Admin: 11/17/16 21:36 Dose: 5 mg - Interaction Disposition, : in Room with Family Infant Interaction: Holding Feeding: Breastfed Infant; Nursed Well Support Person: Mother, Significant Other - Recovery Exam Fundal Tone: Firm Fundal Level: 1 Fingerbreadths Below Umbilicus Fundal Placement: Midline Lochia Amount: Scant Lochia Color: Rubra/Red Perineum Description: Intact, Minimal Bruising/Swelling Episiotomy/Laceration: None Bladder Status: Voiding Urinary Elimination: Voided - Exam General: alert, oriented, cooperative Lungs: Clear to auscultation, Normal respiratory effort Cardiovascular: Regular Rate, Regular Rhythm Abdomen: soft, no distension, tenderness (appropriate post op ) Extremities: no edema Skin: warm, dry, intact Wound/Incisions: healing well, no drainage - Problem List & Annotations (1) 39 weeks gestation of SNOMED Code(s): 55228569 Code(s): Z3A.39 - 39 WEEKS GESTATION OF Status: Acute Current Visit: Yes (2) Gestational hypertension SNOMED Code(s): 44893710 Code(s): O13.9 - GESTATIONAL HTN W/O SIGNIFICANT PROTEINURIA, UNSP TRIMESTER Status: Acute Current Visit: Yes Qualifiers: Trimester: third trimester Qualified Code(s): O13.3 - Gestational [ -induced] hypertension without significant proteinuria, third trimester (3) Non-reassuring status SNOMED Code(s): 753870484 Code(s): XYX3300 - Status: Acute Current Visit: Yes (4) S/P primary low transverse SNOMED Code(s): 238452084, 055103098, 893987392, 113881467 Code(s): Z98.891 - HISTORY OF UTERINE SCAR FROM PREVIOUS SURGERY Status: Acute Current Visit: Yes - Problem List Review Problem List Initiated/Reviewed/Updated: Yes - My Orders Last 24 Hours: My Active Orders 11/19/16 12:00 Ibuprofen [Motrin] 600 mg PO Q6H PRN 11/20/16 06:53 Ready for Discharge [RC] PER UNIT ROUTINE - Assessment Assessment:: 21-year-old G1 now P1001 POD#2 from [facility] at 39 and 1/7 weeks due to NRFS - Plan Plan:: S/p * Routine cares * Encourage breast feeding * Discharge home today. Follow up this week for BP check and incision check
[2016-11-20] MEDS ORDERED: Bupivacaine 0.25% 10 ML SDV ONE (08:00)
[2016-11-20] MEDS: Docusate Sodium 100 MG Cap PO PRN (08:43)
[2016-11-20 08:45] VITALS: BP 121/78
[2016-11-20] MEDS ORDERED: Prenatal Multivitamin with Calcium/Folic Acid/Iron Tab PO SCH (09:00)
== END 2016-11-20 15:25 | disposition home or self-care (01) | DRG 766 ==
LOC: JD.OBCHECK 11:05 → JD.OB 11:11 → JD.OBCHECK 12:26 → JD.OB 12:27 → OBSVTOIN 11-18 10:29 → JD.OB 11-18 10:29
PROVIDERS: ADMIT Obstetrics & Gynecology; ATTEND Obstetrics & Gynecology
PROC: 10D00Z1 Extraction of Products of Conception, Low, Open Approach (ICD-10-PCS; principal; 2016-11-18)
PROC: 10907ZC Drainage of Amniotic Fluid, Therapeutic from Products of Conception, Via Natural or Artificial Opening (ICD-10-PCS; 2016-11-18)
PROC: 3E033VJ Introduction of Other Hormone into Peripheral Vein, Percutaneous Approach (ICD-10-PCS; 2016-11-18)
PROC: 3E0P7GC Introduction of Other Therapeutic Substance into Female Reproductive, Via Natural or Artificial Opening (ICD-10-PCS; 2016-11-18)
PROC: 00HU33Z Insertion of Infusion Device into Spinal Canal, Percutaneous Approach (ICD-10-PCS; 2016-11-18)
PROC: 3E0R3CZ (ICD-10-PCS; 2016-11-18)
DX: O13.4 Gestational [pregnancy-induced] hypertension without significant proteinuria, complicating childbirth (principal); O76 Abnormality in fetal heart rate and rhythm complicating labor and delivery; Z3A.39 39 weeks gestation of pregnancy; Z37.0 Single live birth
CPT/HCPCS: 01967; 01968; 36415; 81003; 84450; 84460; 85027; A9270-GY; J0690; J1885; J2175; J2270; J2405; J2590; J2765; J3010; J7042; J7120